=== PATIENT | female | born 1980 | race Caucasian/White ===

== ENCOUNTER 2018-04-01 10:09 | Emergency (ER) | payer MEDICAID ==
[~2018-04-01] VITALS: Ht 167.6 cm; Wt 131.0 kg
[2018-04-01] MEDS ORDERED: SODIUM CHLORIDE 0.9% 1,000 ML IV ONE (10:39)
[2018-04-01 12:32] LABS: BASOPHILS % 0.5 % (0.0-2.0); EOSINOPHILS % 2.4 % (0.0-5.0); HEMOGLOBIN. 12.2 g/dL (12.0-16.0); MEAN CORPUSCULAR HEMOGLOBIN 29.6 pg (28.0-32.0); MEAN CORPUSCULAR VOLUME 89.8 fL (81.0-99.0); MEAN PLATELET VOLUME 8.4 fl (7.4-10.4); MONOCYTES % 6.2 % (2.0-8.0); NEUTROPHILS % 62.9 % (40.0-76.0); PLATELET 236 x1000/uL (130-400); RED BLOOD CELL COUNT 4.12 mill/uL (4.2-5.4); RED CELL DISTRIBUTION WIDTH 14.7 % (11.6-14.6)
[2018-04-01 12:39] LABS: CHLORIDE 107 mEq/L (98-107)
[2018-04-01] MEDS ORDERED: ACETAMINOPHEN 325MG TABLET PO ONE ×2 (12:45→16:00)
[2018-04-01 13:06] LABS: B-HCG QUANTITATIVE 48150 mIU/mL (<3)
[2018-04-01 13:08] LABS: CLARITY URINE TURBID (CLEAR); COLOR URINE YELLOW (YELLOW); KETONES URINE NEGATIVE (NEGATIVE); LEUKOCYTE ESTERASE URINE NEGATIVE (NEGATIVE); NITRITE URINE NEGATIVE (NEGATIVE); OCCULT BLOOD URINE 2+ (NEGATIVE); PH URINE 5.5 (4.5-8.0); PROTEIN URINE NEGATIVE (NEGATIVE); SPECIFIC GRAVITY URINE 1.026 (1.005-1.030); UROBILINOGEN URINE 0.2 E.U./dL (0.2-1.0)
[2018-04-01 14:26] VITALS: BP 130/75
[2018-04-01] MEDS ORDERED: ACETAMINOPHEN 500MG TABLET ONE (16:01)
== END 2018-04-01 14:29 | disposition home or self-care (01) ==
LOC: ER 10:09
DX: O26.891 Other specified pregnancy related conditions, first trimester (principal); R53.1 Weakness; R42 Dizziness and giddiness; R03.0 Elevated blood-pressure reading, without diagnosis of hypertension; O26.811 Pregnancy related exhaustion and fatigue, first trimester; O34.80 Maternal care for other abnormalities of pelvic organs, unspecified trimester; O09.521 Supervision of elderly multigravida, first trimester; Z3A.11 11 weeks gestation of pregnancy
CPT/HCPCS: 36415; 76801; 76817; 80048; 81003; 81025; 84702; 85025; 86850; 86900; 86901; 96360; 96361; 99285; J7030; Z7610